=== PATIENT | female | born 1950 | race Caucasian/White ===

== ENCOUNTER 2017-05-01 13:05 | Outpatient (CLI) | payer MEDICARE, OTHER | END 2017-05-01 13:06 | disposition home or self-care (01) | LOC: LAB 13:05 | PROVIDERS: ATTEND Family Medicine | DX: Z79.890 Hormone replacement therapy (principal); E78.5 Hyperlipidemia, unspecified; E03.9 Hypothyroidism, unspecified ==

== ENCOUNTER 2017-05-02 07:52 | Outpatient (CLI) | payer MEDICARE, OTHER ==
[2017-05-02 08:34] LABS: BASOPHILS # (AUTO) 0.1 10^3/uL (0.0-0.1); BASOPHILS % (AUTO) 1.1 %; EOSINOPHILS # (AUTO) 0.2 10^3/uL (0.0-0.7); EOSINOPHILS % (AUTO) 3.5 %; HCT - HEMATOCRIT 41.8 % (37.0-47.0); HGB - HEMOGLOBIN 13.7 g/dL (12.0-16.0); LYMPHOCYTES # (AUTO) 2.1 10^3/uL (1.5-3.5); LYMPHOCYTES % (AUTO) 31.1 %; MEAN CORPUSCULAR HEMOGLOBIN 29.3 pg (27.0-31.0); MEAN CORPUSCULAR HGB CONC 32.8 g/dL (32.0-36.0); MEAN CORPUSCULAR VOLUME 89.3 fL (81.0-99.0); MONOCYTES # (AUTO) 0.4 10^3/uL (0.0-1.0); MONOCYTES % (AUTO) 5.7 %; NEUTROPHILS % (AUTO) 58.6 %; RED BLOOD COUNT 4.68 10^6/uL (4.20-5.40); RED CELL DISTRIBUTION WIDTH 13.7 % (12.0-15.0); UNCORRECTED WHITE BLOOD COUNT 6.8 x10^3/uL; WHITE BLOOD COUNT 6.8 x10^3/uL (4.8-10.8)
[2017-05-02 08:47] LABS: ALBUMIN/GLOBULIN RATIO 1.6 (1.0-2.2); BILIRUBIN,TOTAL 0.4 mg/dL (0.2-1.0); BUN - BLOOD UREA NITROGEN 14 mg/dL (6-20); CALCIUM 9.3 mg/dL (8.5-10.3); CARBON DIOXIDE - CO2 26 mmol/L (21-32); CHLORIDE 103 mmol/L (101-111); CHOL/HDL RATIO 2.9 (<4.4); CHOLESTEROL 170 mg/dL; CREATININE 0.7 mg/dL (0.4-1.0); GFR - MDRD 83 (>89); GLUCOSE 92 mg/dL (70-100); HDL CHOLESTEROL 58 mg/dL; LDL/HDL RATIO 1.5 (<4.4); POTASSIUM 4.6 mmol/L (3.5-5.0); SODIUM 138 mmol/L (135-145); TOTAL PROTEIN 6.9 g/dL (6.7-8.2); TRIGLYCERIDES 123 mg/dL; VLDL CHOLESTEROL 25 mg/dL
== END 2017-05-02 07:53 | disposition home or self-care (01) ==
LOC: LAB 07:52
PROVIDERS: ATTEND Family Medicine
DX: E78.5 Hyperlipidemia, unspecified (principal); Z79.890 Hormone replacement therapy; E03.9 Hypothyroidism, unspecified
CPT/HCPCS: 36415; 80053; 80061; 84443; 85025

== ENCOUNTER 2018-08-09 14:31 | Emergency (ER) | payer MEDICARE, OTHER ==
--- NOTE | 2018-08-09 15:47 | XRAY Report ---
Reason: pain Procedure Date: 08/09/2018 Accession Number: [id number] / [id number] Procedure: XR - Foot 3 View RT CPT Code: FULL RESULT: EXAM: RIGHT FOOT RADIOGRAPHY EXAM DATE: 08/09/2018 03:30 PM. CLINICAL HISTORY: Pain. COMPARISON: None. TECHNIQUE: 3 views. FINDINGS: Bones: There is sclerosis and subchondral cystic change at the first metatarsal phalangeal joint. No acute fracture. Joints: There is hallux valgus of the first toe. There is a moderate sized plantar calcaneal spur. Soft Tissues: There is ossification of the inferior Achilles tendon. IMPRESSION: 1. No fracture or subluxation. 2. Hallux valgus and degenerative disease of the first metatarsal phalangeal joint. RADIA
[2018-08-09] MEDS ORDERED: NAPROXEN 250 MG TABLET PO STA (15:51)
--- NOTE | 2018-08-09 15:54 | ED Physician Documentation ---
PD HPI LOWER EXT INJURY - Stated complaint Stated Complaint: RIGHT FOOT PX - Chief complaint Chief Complaint: Ext Problem - History obtained from History obtained from: Patient - History of Present Illness PD HPI LOW EXT INJURY LOCATION: Right, Foot Type of injury: Other (No injury) Timing - onset: Other (Over the past several days) Timing - details: Gradual onset Severity Comments: Moderate Improved by: Rest Worsened by: Moving, Palpating Associated symptoms: Other (The patient reports pain from her medial malleolus Along the medial aspect of the foot). No: Weakness, Numbness Similar symptoms before: No diagnosis Recently seen: Not recently seen Review of Systems Constitutional: denies: Fever, Chills Eyes: denies: Discharge Ears: denies: Ear pain Nose: denies: Congestion Musculoskeletal: reports: Extremity pain. 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 - Present Medications Home Medications: Ambulatory Orders Medication Instructions Recorded Confirmed Aspirin Chewable [St Gonzalo 81 mg PO DAILY 08/09/18 08/09/18 Aspirin] Estradiol 0.5 mg PO DAILY 08/09/18 08/09/18 Levothyroxine [Synthroid] 25 mcg PO QDAC 08/09/18 08/09/18 Pravastatin Sodium 40 mg PO DAILY 08/09/18 08/09/18 Zolpidem [Ambien] 5 mg PO HS 08/09/18 08/09/18 - Allergies Allergies/Adverse Reactions: Allergies Allergy/AdvReac Type Severity Reaction Status Date / Time No Known Drug Allergies Allergy Verified 08/09/18 14:37 - Social History Does the pt smoke?: No Smoking Status: Never smoker Does the pt drink ETOH?: Yes ETOH Use: Wine Does the pt have substance abuse?: No - Immunizations Immunizations are current?: Yes - POLST Patient has POLST: No PD ED PE NORMAL - General General: Alert and oriented X 3, No acute distress - HEENT HEENT: Atraumatic, PERRL, EOMI, Ears normal - Derm Derm: Normal color - Extremities Extremities: No deformity - Neuro Neuro: Alert and oriented X 3, Normal speech - Psych Psych: Normal mood PD ED PE EXPANDED - Extremities Feet visual: 1 - tenderness (The patient has tenderness to palpation along the tibialis anterior tendon, there is no swelling. There is no skin changes. There is no bony tenderness. The patient has normal sensation light touch. The patient has equal dorsalis pedis pulses and normal temperature of the bilateral lower extremities. The patient has no calf tenderness. The patient has full active range of motion of the hip, knee and ankle and foot. The patient is able ambulate) Results - Vitals Vitals: Vital Signs - 24 hr 08/09/18 08/09/18 14:34 15:58 Temperature 36.6 C Heart Rate 66 68 Respiratory 15 16 Rate Blood Pressure 139/81 H 130/80 O2 Saturation 100 100 Oxygen O2 Source Room air PD MEDICAL DECISION MAKING - ED course ED course: The patient requested an x-ray, there is no evidence of an acute fracture. There is evidence of degenerative changes. The patient's symptoms seem to represent a tendinitis. The patient appears appropriate for discharge and conservative outpatient management. Advised follow-up with primary care. I discussed warning signs and recommended returning to the emergency department for any worsening or any concerns. Departure - Departure Disposition: 01 Home, Self Care Clinical Impression: Foot pain Qualifiers: Laterality: right Qualified Code(s): M79.671 - Pain in right foot Condition: Good Instructions: Tendinitis Foot, Tendonitis Foot Tx Follow-Up: Wilfredo Ulloa MD [Primary Care Provider] - Within 1 week (Please follow-up with primary care. If your symptoms are not improving you may need a referral to orthopedics for further evaluation and management of your symptoms) Comments: Please return to the emergency department for worsening symptoms or any concerns
[2018-08-09 15:59] VITALS: BP 130/80
== END 2018-08-09 15:58 | disposition home or self-care (01) ==
LOC: ED 14:31
DX: M79.671 Pain in right foot (principal); Z79.82 Long term (current) use of aspirin
CPT/HCPCS: 73630; 99282; 99283; A9270

== ENCOUNTER 2019-06-15 19:16 | Outpatient (CLI) | payer MEDICARE, OTHER | END 2019-06-15 19:17 | disposition critical access hospital (66) | LOC: EMS 19:16 | PROVIDERS: ATTEND Surgery | DX: R55 Syncope and collapse (principal); R09.89 Other specified symptoms and signs involving the circulatory and respiratory systems | CPT/HCPCS: A0425; A0427 ==

== ENCOUNTER 2019-06-15 19:48 | Emergency (ER) | payer MEDICARE, OTHER ==
[2019-06-15] MEDS ORDERED: SODIUM CHLORIDE 0.9% 1,000 ML IV ONE (19:53)
--- NOTE | 2019-06-15 19:55 | ED Physician Documentation ---
History of Present Illness - Stated complaint Stated Complaint: NEAR SYNCOPE/ETOH - History obtained from History obtained from: Patient - History of Present Illness Timing: Today (She was in her usual state of health which is very healthy. She went on to dinner with some friends at a [employer] restaurant. She had a little bit of a Charito and then started to feel nauseous and quite dizzy and feeling like she was going to pass out. For the paramedics her vital signs were notable for mild hypotension and pretty significant orthostasis dropping down to 65/45 with seated position but of note her heart rate did not go up with that, both supine and sitting heart rates were in the mid 50s. She is not any blood pressure medicines. She feels back to normal now. She was nauseous, but received Zofran in route. She has a history of palpitations with negative Holter monitoring a few years ago. No other heart issues.) Review of Systems Ten Systems: 10 systems reviewed and negative Constitutional: reports: Sweats. denies: Fever, Chills Cardiac: denies: Chest pain / pressure, Palpitations Respiratory: denies: Dyspnea, Cough GI: reports: Nausea. 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 - Present Medications Home Medications: Ambulatory Orders Medication Instructions Recorded Confirmed Aspirin Chewable [St Gonzalo 81 mg PO DAILY 08/09/18 08/09/18 Aspirin] Estradiol 0.5 mg PO DAILY 08/09/18 08/09/18 Levothyroxine [Synthroid] 25 mcg PO QDAC 08/09/18 08/09/18 Pravastatin Sodium 40 mg PO DAILY 08/09/18 08/09/18 Zolpidem [Ambien] 5 mg PO HS 08/09/18 08/09/18 - Allergies Allergies/Adverse Reactions: Allergies Allergy/AdvReac Type Severity Reaction Status Date / Time No Known Drug Allergies Allergy Verified 06/15/19 19:50 - Social History Does the pt smoke?: No Smoking Status: Never smoker Does the pt drink ETOH?: Yes Does the pt have substance abuse?: No - Immunizations Immunizations are current?: Yes - POLST Patient has POLST: No PD ED PE NORMAL - Vitals Vital signs reviewed: Yes - General General: Alert and oriented X 3, No acute distress - HEENT HEENT: PERRL, EOMI - Neck Neck: Supple, no meningeal sign, No bony TTP - Cardiac Cardiac: RRR, No murmur - Respiratory Respiratory: No respiratory distress, Clear bilaterally - Abdomen Abdomen: Non tender - Extremities Extremities: No edema, No calf tenderness / cord - Neuro Neuro: Alert and oriented X 3, Normal speech Results - Vitals Vitals: Vital Signs - 24 hr 06/15/19 06/15/19 06/15/19 19:50 21:00 21:05 Temperature 36.7 C 36.5 C Heart Rate 78 81 Heart Rate [ 73 Sitting] Heart Rate [ 73 Standing] Heart Rate [ 68 Supine] Respiratory 17 24 Rate Blood Pressure 153/78 H 130/87 H Blood Pressure 136/82 H [Sitting] Blood Pressure 112/75 [Standing] Blood Pressure 118/81 H [Supine] O2 Saturation 100 100 Oxygen O2 Source Room air - EKG (time done) 1958 Rate: Rate (enter#) (61) Rhythm: NSR (with pac) [place]: Normal Intervals: Normal OK QRS: Normal Ischemia: Non specific changes (Mild lateral ST depression and inferior T wave flattening) Computer interpretation: Agree with computer - Labs Labs: Laboratory Tests 06/15/19 06/15/19 06/15/19 20:10 20:10 20:10 WBC 7.5 RBC 4.29 Hgb 12.8 Hct 39.5 MCV 92.1 MCH 29.8 MCHC 32.4 RDW 13.4 Plt Count 277 MPV 9.7 Neut # (Auto) 4.3 Lymph # (Auto) 2.5 Mckenzie # (Auto) 0.6 Eos # (Auto) 0.1 Baso # (Auto) 0.0 Absolute Nucleated RBC 0.00 Nucleated RBC % 0.0 Sodium 141 Potassium 2.9 L Chloride 107 Carbon Dioxide 27 Anion Gap 7.0 BUN 15 Creatinine 0.7 Estimated GFR (MDRD) 83 L Glucose 92 Calcium 9.3 Magnesium 2.1 Total Bilirubin 0.5 AST 25 ALT 21 Alkaline Phosphatase 64 Troponin I High Sens < 2.3 L Total Protein 6.6 L Albumin 4.1 Globulin 2.5 Albumin/Globulin Ratio 1.6 Lipase 40 Ethyl Alcohol 16.8 PD MEDICAL DECISION MAKING - ED course ED course: 68-year-old woman with significant orthostasis prior to arrival with a syncopal episode. Examination now is normal. EKG with some subtle findings which may be related to her hypokalemia which was repleted orally. She was asymptomatic here. Repeat orthostatics after IV fluids were normal. Departure - Departure Disposition: 01 Home, Self Care Clinical Impression: Hypokalemia, Vasovagal near-syncope Condition: Good Record reviewed to determine appropriate education?: Yes Instructions: ED Diet High Potassium, ED Fainting Unkn Cause Comments: Return for new or worsening symptoms, follow-up with your doctor, next available appointment. Discuss further work-up for syncopal episode, consider echocardio gram. Discharge Date/Time: 06/15/19 21:12
[2019-06-15 20:19] LABS: BASOPHILS % (AUTO) 0.5 %; EOSINOPHILS # (AUTO) 0.1 10^3/uL (0.0-0.7); EOSINOPHILS % (AUTO) 1.7 %; HGB - HEMOGLOBIN 12.8 g/dL (12.0-16.0); LYMPHOCYTES # (AUTO) 2.5 10^3/uL (1.5-3.5); LYMPHOCYTES % (AUTO) 33.3 %; MEAN CORPUSCULAR HEMOGLOBIN 29.8 pg (27.0-31.0); MEAN CORPUSCULAR HGB CONC 32.4 g/dL (32.0-36.0); MEAN CORPUSCULAR VOLUME 92.1 fL (81.0-99.0); MEAN PLATELET VOLUME 9.7 fL (7.9-10.8); MONOCYTES # (AUTO) 0.6 10^3/uL (0.0-1.0); MONOCYTES % (AUTO) 7.5 %; NEUTROPHILS # (AUTO) 4.3 10^3/uL (1.5-6.6); NEUTROPHILS % (AUTO) 56.7 %; PLT - PLATELET COUNT 277 10^3/uL (130-450); RED BLOOD COUNT 4.29 10^6/uL (4.20-5.40); RED CELL DISTRIBUTION WIDTH 13.4 % (12.0-15.0); WHITE BLOOD COUNT 7.5 x10^3/uL (4.8-10.8)
[2019-06-15 20:33] LABS: ALBUMIN 4.1 g/dL (3.2-5.5); ALBUMIN/GLOBULIN RATIO 1.6 (1.0-2.2); BILIRUBIN,TOTAL 0.5 mg/dL (0.2-1.0); CALCIUM 9.3 mg/dL (8.5-10.3); CREATININE 0.7 mg/dL (0.4-1.0); MAGNESIUM 2.1 mg/dL (1.7-2.8); TOTAL PROTEIN 6.6 g/dL (6.7-8.2)
[2019-06-15] MEDS ORDERED: POTASSIUM CHLORIDE 20 MEQ TABLET PO STA (20:35)
[2019-06-15 21:12] VITALS: BP 130/87
== END 2019-06-15 21:12 | disposition home or self-care (01) ==
LOC: EDBD → EDUNIT# → ED 19:48
DX: E87.6 Hypokalemia (principal); I95.1 Orthostatic hypotension; R11.0 Nausea; I49.1 Atrial premature depolarization; Z79.82 Long term (current) use of aspirin
CPT/HCPCS: 36415; 80053; 83690; 83735; 84484; 85025; 93005; 96360; 99284; A9270; 80320

== ENCOUNTER 2020-10-23 08:03 | Outpatient (CLI) | payer MEDICARE, OTHER ==
--- NOTE | 2020-10-23 15:21 | DEXA Report ---
PROCEDURE: Dexa Spine and/or Hip INDICATIONS: OSTEOPOROSIS TECHNIQUE: Dual energy x-ray absorptiometry (DXA) was performed on a Baby Blendy System. Regions measur ed are the AP Spine, femoral neck, and if needed forearm. COMPARISON: None. FINDINGS: Lumbar Spine: Bone Mineral Density 1.219 g/cm/cm,T score 0.4, normal Left Hip: Bone Mineral Density 0.889 g/cm/cm,T score -0.9, normal Left Femoral Neck: Bone Mineral Density 0.856 g/cm/cm, T score -1.3, osteopenia (T score greater or equal to -1.0: NORMAL) (T score from -1.1 to -2.4: OSTEOPENIA) (T score less than or equal to -2.5 to: OSTEOPOROSIS) Impression: Osteopenia. Patients with diagnosis of osteoporosis or osteopenia should have regular bone mineral density assess ment. For those eligible for Medicare, routine testing is allowed once every 2 years. Testing frequ ency can be increased for patients who have rapidly progressing disease or for those who are receivin g medical therapy to restore bone mass. Reviewed by: Virginia Cooper MD, PhD on 10/23/2020 3:20 PM PDT Approved by: Virginia Cooper MD, PhD on 10/23/2020 3:20 PM PDT Station ID: [id number]
== END 2020-10-23 08:04 | disposition home or self-care (01) ==
LOC: DI 08:03
PROVIDERS: ATTEND Family Medicine
DX: M85.88 Other specified disorders of bone density and structure, other site (principal)

== ENCOUNTER 2020-12-01 07:37 | Outpatient (CLI) | payer MEDICARE, OTHER ==
--- NOTE | 2020-12-03 08:30 | Mammography Report ---
BILATERAL DIGITAL SCREENING MAMMOGRAM 3D/2D: 12/01/2020 CLINICAL: Routine screening. Comparison is made to exams dated: 05/09/2017 mammogram - [facility] and 11/13/2014 mammogram - [facility]. There are scattered fibroglandular elements in both breasts. No significant masses, calcifications, or other findings are seen in either breast. There has been no significant interval change. IMPRESSION: NEGATIVE There is no mammographic evidence of malignancy. A 1 year screening mammogram is recommended. This exam was interpreted at Station ID: [id number]. NOTE: For mammograms, a report in lay terms will be sent to the patient. Approximately 15% of breast malignancies will not be visualized mammographically. In the management of a palpable breast mass, a negative mammogram must not discourage biopsy of a clinically suspicious lesion. Electronically Signed By: Pascual Chambers M.D. ar/penrad:12/01/2020 08:41:11 ACR BI-RADS Category 1: Negative 3341F PARENCHYMAL PATTERN: (A) - The breast(s) demonstrate(s) scattered fibroglandular densities. BI-RADS CATEGORY: (1) - 1 RECOMMENDATION: (ANNUAL) - Recommend routine annual screening mammography. [id number] 1 year screening LATERALITY: (B)
== END 2020-12-01 07:38 | disposition home or self-care (01) ==
LOC: DI.S 07:37
PROVIDERS: ATTEND Family Medicine
DX: Z12.31 Encounter for screening mammogram for malignant neoplasm of breast (principal)

== ENCOUNTER 2022-01-17 08:00 | Outpatient (CLI) | payer MEDICARE, OTHER ==
[2022-01-17 19:40] LABS: BACTERIAL VAGINOSIS DNA NEGATIVE (NEGATIVE); CANDIDA GLABRATA DNA NEGATIVE (NEGATIVE); CANDIDA GROUP DNA NEGATIVE (NEGATIVE); CANDIDA KRUSEI DNA NEGATIVE (NEGATIVE); TRICHOMONAS VAGINALIS DNA NEGATIVE (NEGATIVE)
== END 2022-01-17 23:59 | disposition home or self-care (01) ==
LOC: LAB.S 08:00
PROVIDERS: ATTEND Physician Assistant
DX: R30.0 Dysuria (principal); N76.0 Acute vaginitis
CPT/HCPCS: 81514; 87086

== ENCOUNTER 2022-02-09 13:00 | Emergency (ER) | payer MEDICARE, BC ==
--- OUTSIDE RECORDS SUMMARY | 2022-02-09 14:39 | EXTERNAL MEDICAL SUMMARY RPT | Continuity of Care Document ---
:1950 Author Organization [facility] Address [address] [place] [address] Phone Allergies No information. Encounters No information. Functional Status No information. Immunizations No information. Medications date description facility [id number]+0000 penicillin v potassium [facility] [id number]+0000 fluconazole All [id number]+0000 fluconazole [facility] [id number]+0000 sulfamethoxazole-trimethoprim All [id number]+0000 sulfamethoxazole-trimethoprim [facility] [id number]+0000 sulfamethoxazole-trimethoprim All [id number]+0000 sulfamethoxazole-trimethoprim [facility] [id number]+0000 fluconazole All [id number]+0000 fluconazole [facility] [id number]+0000 atorvastatin All [id number]+0000 atorvastatin [facility] [id number]+0000 atorvastatin All [id number]+0000 atorvastatin [facility] [id number]+0000 penicillin v potassium [facility] [place] tapia Problems No information. Procedures date description facility [id number]+0000 Visit Code Hold All [id number]+0000 Visit Code Hold [facility] [phone]+0000 POC URINALYSIS DIP All [id number]+0000 POC URINALYSIS DIP [facility] [id number]+0000 Vaginitis Pathogens-Affirm ENVIRONMENTAL SERVICES SUPERVISOR All III [id number]+0000 Vaginitis Pathogens-Affirm ENVIRONMENTAL SERVICES SUPERVISOR [facility] [phone]+0000 Urine C&S All [id number]+0000 Urine C&S [facility] Results/Labs No information. Social History date description facility +0000 Never smoker All [id number]+0000 Never smoker [facility] [id number]+0000 Never smoker All [id number]+0000 Never smoker [facility] Vital Signs date measurement value units +0000 BMI BMI 30.34 kg/m2 64342196448026+0000 BP_diastolic BP_diastolic 81 mm[H g] 80210482530547+0000 BP_systolic BP_systolic 136 mm[Hg] 70705141159275+0000 heart_rate heart_rate 61 /min 19730118084833+0000 height_metric height_metric 154.94 cm 27006289574651+0000 height_standard height_standard 61 in 63526374589425+0000 respiration_rate respiration_rate 16 /min 98351106835228+0000 temperature_metric temperature_metric 36.44 C [id number]+0000 temperature_standard temperature_standard 9 7.6 F [id number]+0000 weight_metric weight_metric 72.57 kg 03042468504739+0000 weight_standard weight_standard 160 lb 96218771216229+0000 temperature_metric temperature_metric 36.44 C 42701787554802+0000 temperature_standard temperature_standard 9 7.6 F 66434948980925+0000 BMI BMI 30.34 kg/m2 48474128718079+0000 BP_diastolic BP_diastolic 74 mm[H g] 81115571230188+0000 BP_systolic BP_systolic 123 mm[Hg] 47308963833017+0000 heart_rate heart_rate 67 /min 32475446686556+0000 height_metric height_metric 154.94 cm 08792224242388+0000 height_standard height_standard 61 in 66445020632825+0000 respiration_rate respiration_rate 15 /min 11162494431833+0000 weight_metric weight_metric 72.57 kg 98627480072770+0000 weight_standard weight_standard 160 lb 19405803756587+0000 BMI BMI 30.34 kg/m2 79178760212442+0000 BP_diastolic BP_diastolic 74 mm[H g] 82030505935779+0000 BP_systolic BP_systolic 123 mm[Hg] +0000 heart_rate heart_rate 67 /min +0000 height_metric height_metric 154.94 cm +0000 height_standard height_standard 61 in +0000 respiration_rate respiration_rate 15 /min +0000 weight_metric weight_metric 72.57 kg +0000 weight_standard weight_standard 160 lb
[2022-02-09 15:34] LABS: BILIRUBIN,URINE NEGATIVE (NEGATIVE); GLUCOSE, URINE (UA) NEGATIVE (NEGATIVE); KETONES,URINE (UA) NEGATIVE (NEGATIVE); LEUKOCYTE ESTERASE, URINE NEGATIVE (NEGATIVE); NITRITE,URINE NEGATIVE (NEGATIVE); OCCULT BLOOD,URINE TRACE-INTA (NEGATIVE); PROTEIN,URINE NEGATIVE (NEGATIVE); UROBILINOGEN,URINE 0.2 (NORMAL) E.U./dL (NORMAL)
[2022-02-09 15:35] LABS: CLARITY,URINE CLEAR (CLEAR)
--- NOTE | 2022-02-09 15:43 | ED Physician Documentation ---
PD HPI FEMALE - Stated complaint Stated Complaint: FEMALE - Chief complaint Chief Complaint: UTI - History obtained from History obtained from: Patient - History of Present Illness Timing - onset: How many weeks ago (6) Contributing factors: No: Exposed to STD - Additional information Additional information: 71-year-old female with history of hypertension presents for 6 weeks of dysuria. Patient states she has completed 2 separate courses of antibiotics from her PCP, however she continues to have severe burning with urination and pain when she wipes. Reports hysterectomy,Denies vaginal bleeding, hematuria, weight loss, other complaints. Has not seen an INTERNAL AFFAIRS INVESTIGATOR for this complaint, she is being managed by her primary care physician. Review of Systems Ten Systems: 10 systems reviewed and negative Constitutional: denies: Fever, Chills Cardiac: denies: Chest pain / pressure, Palpitations Respiratory: denies: Dyspnea, Cough : reports: Dysuria. 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 - Present Medications Home Medications: Ambulatory Orders Medication Instructions Recorded Confirmed Aspirin Chewable [St Gonzalo 81 mg PO DAILY 08/09/18 08/09/18 Aspirin] Levothyroxine [Synthroid] 25 mcg PO QDAC 08/09/18 08/09/18 Pravastatin Sodium 40 mg PO DAILY 08/09/18 08/09/18 Zolpidem [Ambien] 5 mg PO HS 08/09/18 08/09/18 estradioL [Estradiol] 0.5 mg PO DAILY 08/09/18 08/09/18 Phenazopyridine HCl [Pyridium] 200 mg PO TID PRN #30 tablet 02/09/22 - Allergies Allergies/Adverse Reactions: Allergies Allergy/AdvReac Type Severity Reaction Status Date / Time No Known Drug Allergies Allergy Verified 02/09/22 13:10 - Social History Does the pt smoke?: No Smoking Status: Never smoker Does the pt drink ETOH?: Yes Does the pt have substance abuse?: No - Immunizations Immunizations are current?: Yes - POLST Patient has POLST: No PD ED PE NORMAL - Vitals Vital signs reviewed: Yes - General General: Alert and oriented X 3, No acute distress, Well developed/nourished, Other - HEENT HEENT: Atraumatic, PERRL, EOMI, Ears normal, Moist mucous membranes, Pharynx benign, Dentition benign, Other - Neck Neck: Supple, no meningeal sign, No bony TTP, No adenopathy, Thyroid normal, No JVD, No bruit, C-Spine cleared by NEXUS criteria, Other - Cardiac Cardiac: RRR, No murmur, No gallop, No rub, Strong equal pulses, Other - Respiratory Respiratory: No respiratory distress, Clear bilaterally, Other - Abdomen Abdomen: Normal bowel sounds, Soft, Non tender, Non distended, No organomegaly, Other - Female Female : Doctor Of Naprapathy present, Other (VAGINAL PROLAPSE) Results - Vitals Vitals: Vital Signs - 24 hr 02/09/22 02/09/22 13:05 16:25 Temperature 36.6 C Heart Rate 66 72 Respiratory 16 20 Rate Blood Pressure 135/76 H 138/72 H O2 Saturation 99 99 Oxygen O2 Source Room air - Labs Labs: Microbiology 02/09/22 16:11 Wet Prep - Final Genital - Vaginal Laboratory Tests 02/09/22 13:22 Urine Color STRAW Urine Clarity CLEAR Urine pH 6.0 Ur Specific Rosamond <=1.005 Urine Protein NEGATIVE Urine Glucose (UA) NEGATIVE Urine Ketones NEGATIVE Urine Occult Blood TRACE-INTA Urine Nitrite NEGATIVE Urine Bilirubin NEGATIVE Urine Urobilinogen 0.2 (NORMAL) Ur Leukocyte Esterase NEGATIVE Ur Microscopic Review NOT INDICATED Urine Culture Comments NOT INDICATED PD MEDICAL DECISION MAKING - ED course Complexity details: reviewed results, re-evaluated patient, considered differential, d/w patient ED course: Well-appearing patient with 6 weeks of dysuria. Urinalysis was negative, patient consented to pelvic exam. Pelvic exam was significant for vaginal wall prolapse without protrusion. Speculum inserted without difficulty, however prolapse returned after speculum was removed. Patient was counseled on her diagnosis, recommended INTERNAL AFFAIRS INVESTIGATOR follow-up. At this time no indication for antibiotics. Kegel excercises advised and pelvic floor therapy discussed with patient. Departure - Departure Disposition: 01 Home, Self Care Clinical Impression: Dysuria, Vaginal prolapse Condition: Good Instructions: ED Dysuria Uncertain Cause Prescriptions: Phenazopyridine HCl [Pyridium] 200 mg PO TID PRN #30 tablet PRN Reason: dysuria Comments: DRINK PLENTY OF FLUIDS. I WOULD RECOMMEND FOLLOWING UP WITH AN OB-JUDICIAL LAW CLERK OR A UROLOGIST FOR THESE CONTINUED SYMPTOMS. WEAR COTTON UNDERWEAR AND BREATHABLE CLOTHING. Discharge Date/Time: 02/09/22 16:35
[2022-02-09 16:35] VITALS: BP 138/72
== END 2022-02-09 16:35 | disposition home or self-care (01) ==
LOC: ED 13:00
DX: R30.0 Dysuria (principal); N81.10 Cystocele, unspecified; I10 Essential (primary) hypertension
CPT/HCPCS: 81001; 81003; 87086; 87210; 99283; 99284

== ENCOUNTER 2022-02-22 08:00 | Outpatient (CLI) | payer MEDICARE, BC ==
[2022-02-23 02:53] LABS: BACTERIAL VAGINOSIS DNA NEGATIVE (NEGATIVE)
[2022-02-23 02:54] LABS: CANDIDA GLABRATA DNA UNRESOLVED (NEGATIVE); CANDIDA GROUP DNA UNRESOLVED (NEGATIVE); CANDIDA KRUSEI DNA UNRESOLVED (NEGATIVE); TRICHOMONAS VAGINALIS DNA UNRESOLVED (NEGATIVE)
== END 2022-02-22 23:59 | disposition home or self-care (01) ==
LOC: LAB 08:00
PROVIDERS: ATTEND Obstetrics & Gynecology
DX: N76.0 Acute vaginitis (principal)
CPT/HCPCS: 81514

== ENCOUNTER 2022-08-15 07:00 | Outpatient (CLI) | payer MEDICARE, BC | END 2022-08-15 23:59 | disposition home or self-care (01) | LOC: LAB 07:00 | PROVIDERS: ATTEND Student in an Organized Health Care Education/Training Program | DX: R61 Generalized hyperhidrosis (principal); R23.2 Flushing; E03.8 Other specified hypothyroidism; E06.3 Autoimmune thyroiditis ==

== ENCOUNTER 2022-08-15 12:49 | Outpatient (CLI) | payer MEDICARE, BC ==
[2022-08-15 13:39] LABS: THYROID STIMULATING HORMONE 2.17 uIU/mL (0.34-5.60)
[2022-08-15 13:41] LABS: FREE T4 (FREE THYROXINE) 0.87 ng/dL (0.58-1.64)
== END 2022-08-15 12:50 | disposition home or self-care (01) ==
LOC: LAB 12:49
PROVIDERS: ATTEND Student in an Organized Health Care Education/Training Program
DX: R61 Generalized hyperhidrosis (principal); R23.2 Flushing; E03.8 Other specified hypothyroidism; E06.3 Autoimmune thyroiditis
CPT/HCPCS: 36415; 82384; 83835; 84439; 84443; 84480

== ENCOUNTER 2022-08-21 07:00 | Outpatient (CLI) | payer MEDICARE, BC ==
[2022-08-24 14:08] LABS: 5-HIAA URINE 15.8 mg/L (Undefined); 5-HIAA URINE 24HR 23.7 mg/24 hr (0.0-14.9)
== END 2022-08-21 23:59 | disposition home or self-care (01) ==
LOC: LAB.R 07:00
PROVIDERS: ATTEND Student in an Organized Health Care Education/Training Program
DX: R61 Generalized hyperhidrosis (principal); R23.2 Flushing; E03.8 Other specified hypothyroidism; E06.3 Autoimmune thyroiditis
CPT/HCPCS: 81599; 83497; 83835

== ENCOUNTER 2022-09-10 09:00 | Outpatient (CLI) | payer MEDICARE, BC ==
[2022-09-16 12:09] LABS: METANEPHRINE URINE 37 ug/L (Undefined); METANEPHRINE URINE 24HR 59 ug/24 hr (36-209); NORMETANEPHRINE URINE 193 ug/L (Undefined); NORMETANEPHRINE URINE 24HR 309 ug/24 hr (131-612)
== END 2022-09-10 23:59 | disposition home or self-care (01) ==
LOC: LAB.R 09:00
PROVIDERS: ATTEND Student in an Organized Health Care Education/Training Program
DX: E03.8 Other specified hypothyroidism (principal); E06.3 Autoimmune thyroiditis; R61 Generalized hyperhidrosis; R23.2 Flushing
CPT/HCPCS: 81599; 82384; 83835

== ENCOUNTER 2023-01-20 07:35 | Outpatient (CLI) | payer MEDICARE, BC ==
--- NOTE | 2023-01-23 09:34 | Mammography Report ---
BILATERAL DIGITAL SCREENING MAMMOGRAM 3D/2D: 01/20/2023 CLINICAL: Routine screening. Comparison is made to exams dated: 12/01/2020 mammogram, 05/09/2017 mammogram - [facility], and 11/13/2014 mammogram - [facility]. Both breasts are almost entirely fatty (category a/<25% glandular tissue). No significant masses, calcifications, or other findings are seen in either breast. There has been no significant interval change. IMPRESSION: NEGATIVE There is no mammographic evidence of malignancy. A 1 year screening mammogram is recommended. Based on the Tyrer Cuzick model (a risk assessment model) the patients lifetime risk is 2.0% and her 10 year risk is 1.6%. According to the ACR, ACS, and NCCN guidelines, an annual breast MRI exam mariana g with mammogram is recommended if the patients lifetime risk is 20% or greater. This exam was interpreted at Station ID: [id number]. NOTE: For mammograms, a report in lay terms will be sent to the patient. Approximately 15% of breast malignancies will not be visualized mammographically. In the management of a palpable breast mass, a negative mammogram must not discourage biopsy of a clinically suspicious lesion. Electronically Signed By: Alexia abraham/leonila:01/20/2023 09:45:41 letter sent: No_Letter ACR BI-RADS Category 1: Negative 3341F PARENCHYMAL PATTERN: (F) - The breast(s) demonstrate(s) diffuse fatty replacement. BI-RADS CATEGORY: (1) - 1 Mammogram [id number] 1 year screening LATERALITY: (B)
== END 2023-01-20 07:36 | disposition home or self-care (01) ==
LOC: DI 07:35
DX: Z12.31 Encounter for screening mammogram for malignant neoplasm of breast (principal)

== ENCOUNTER 2023-04-05 07:05 | Outpatient (CLI) | payer MEDICARE, BC ==
[2023-04-05 07:35] LABS: % IRON SATURATION 21 % (20-50); CHOL/HDL RATIO 2.7 (<4.4); CHOLESTEROL 149 mg/dL; HDL CHOLESTEROL 56 mg/dL; IRON 74 ug/dL (50-212); LDL CHOLESTEROL,CALCULATED 73 mg/dL; LDL/HDL RATIO 1.3 (<4.4); TOTAL IRON BINDING CAPACITY 360 ug/dL (250-450); TRANSFERRIN 257 mg/dL (203-362); TRIGLYCERIDES 101 mg/dL (48-352); VLDL CHOLESTEROL 20 mg/dL
[2023-04-05 07:52] LABS: THYROID STIMULATING HORMONE 1.98 uIU/mL (0.34-5.60)
[2023-04-05 07:57] LABS: FERRITIN 33.4 ng/mL (11.0-306.8)
== END 2023-04-05 07:06 | disposition home or self-care (01) ==
LOC: LAB 07:05
PROVIDERS: ATTEND Nurse Practitioner
DX: E78.5 Hyperlipidemia, unspecified (principal); G25.81 Restless legs syndrome; E03.9 Hypothyroidism, unspecified
CPT/HCPCS: 36415; 80061; 82728; 83540; 83721; 84439; 84443; 84466

== ENCOUNTER 2023-09-13 08:00 | Outpatient (CLI) | payer MEDICARE, BC ==
[2023-09-13 18:13] LABS: BILIRUBIN,URINE NEGATIVE (NEGATIVE); GLUCOSE, URINE (UA) NEGATIVE (NEGATIVE); KETONES,URINE (UA) NEGATIVE (NEGATIVE); LEUKOCYTE ESTERASE, URINE NEGATIVE (NEGATIVE); NITRITE,URINE NEGATIVE (NEGATIVE); OCCULT BLOOD,URINE TRACE-INTA (NEGATIVE); PROTEIN,URINE NEGATIVE (NEGATIVE); UROBILINOGEN,URINE 0.2 (NORMAL) E.U./dL (NORMAL)
[2023-09-13 18:15] LABS: CLARITY,URINE CLEAR (CLEAR)
[2023-09-13 18:30] LABS: BACTERIA,URINE Rare /HPF (None Seen); RBC,URINE 0-5 /HPF (0-5); SQUAMOUS EPITHELIAL CELL,UR MANY Squamous (<= Few); WBC,URINE 0-3 /HPF (0-5)
== END 2023-09-13 23:59 | disposition home or self-care (01) ==
LOC: LAB.WCP 08:00
PROVIDERS: ATTEND Nurse Practitioner
DX: R30.0 Dysuria (principal)
CPT/HCPCS: 81001; 87086

== ENCOUNTER 2023-10-01 13:38 | Outpatient (CLI) | payer MEDICARE, BC ==
[2023-10-01 14:16] LABS: ALBUMIN 4.4 g/dL (3.2-5.5); ALBUMIN/GLOBULIN RATIO 1.7 (1.0-2.2); BILIRUBIN,TOTAL 0.4 mg/dL (0.2-1.0); CREATININE 0.8 mg/dL (0.6-1.3); POTASSIUM 4.1 mmol/L (3.5-4.5)
[2023-10-01 14:19] LABS: BASOPHILS # (AUTO) 0.1 10^3/uL (0.0-0.1); BASOPHILS % (AUTO) 0.6 %; EOSINOPHILS # (AUTO) 0.2 10^3/uL (0.0-0.7); EOSINOPHILS % (AUTO) 2.5 %; HCT - HEMATOCRIT 45.4 % (37.0-47.0); LYMPHOCYTES # (AUTO) 2.7 10^3/uL (1.5-3.5); LYMPHOCYTES % (AUTO) 34.4 %; MEAN CORPUSCULAR HEMOGLOBIN 28.7 pg (27.0-31.0); MEAN CORPUSCULAR HGB CONC 30.8 g/dL (32.0-36.0); MEAN CORPUSCULAR VOLUME 93.2 fL (81.0-99.0); MEAN PLATELET VOLUME 10.2 fL (7.9-10.8); MONOCYTES # (AUTO) 0.7 10^3/uL (0.0-1.0); MONOCYTES % (AUTO) 8.4 %; NEUTROPHILS # (AUTO) 4.3 10^3/uL (1.5-6.6); PLT - PLATELET COUNT 301 10^3/uL (130-450); RED BLOOD COUNT 4.87 10^6/uL (4.20-5.40); RED CELL DISTRIBUTION WIDTH 14.3 % (12.0-15.0); WHITE BLOOD COUNT 7.9 x10^3/uL (4.8-10.8)
== END 2023-10-01 13:39 | disposition home or self-care (01) ==
LOC: LAB 13:38
PROVIDERS: ATTEND Nurse Practitioner
DX: Z51.81 Encounter for therapeutic drug level monitoring (principal)
CPT/HCPCS: 36415; 80053; 85025